=== PATIENT | female | born 1990 | race American Indian/Alaskan Native ===

== ENCOUNTER 2017-01-19 21:34 | Emergency (ER) | payer SELFPAY ==
[2017-01-19 21:52] VITALS: BP 108/72
== END 2017-01-20 01:46 | disposition left against medical advice (07) ==
LOC: ED 21:34
DX: L98.8 Other specified disorders of the skin and subcutaneous tissue (principal); Z53.21 Procedure and treatment not carried out due to patient leaving prior to being seen by health care provider